=== PATIENT | male | born 1970 | race Caucasian/White ===

== ENCOUNTER 2022-01-08 15:02 | Outpatient (CLI) | payer BC | END 2022-01-08 15:03 | disposition home or self-care (01) | LOC: SCSRAD 15:02 | PROVIDERS: ATTEND Family Medicine | DX: M54.2 Cervicalgia (principal); M25.512 Pain in left shoulder; M25.522 Pain in left elbow; M47.812 Spondylosis without myelopathy or radiculopathy, cervical region; M77.8 Other enthesopathies, not elsewhere classified | CPT/HCPCS: 72040 ==

== ENCOUNTER 2022-02-14 08:11 | Outpatient (CLI) | payer OTHER | END 2022-02-14 08:12 | disposition home or self-care (01) | LOC: SCSMRI 08:11 | PROVIDERS: ATTEND Family Medicine | DX: M54.2 Cervicalgia (principal); M50.321 Other cervical disc degeneration at C4-C5 level | CPT/HCPCS: 72141 ==